=== PATIENT | male | born 1995 | race Caucasian/White ===

== ENCOUNTER 2021-01-10 21:11 | Emergency (ER) | payer BC ==
[~2021-01-10] VITALS: Ht 182.9 cm; Wt 79.8 kg
[2021-01-10 21:18] VITALS: BP 152/80
--- NOTE | 2021-01-10 21:40 | NUR ---
PT PRESENTED TO THE ED W/ CC TESTICAL PAIN W/ PAIN SCALE OF 4 OF 10, PT STATED "PAIN FEELS LIKE HE IS SITTING ON IT", VSS, NO OTHER SIGNS OF ACUTE DISTRESS NOTED PMH: ANXIETY, SCRATCHED CORNEA NKA
--- NOTE | 2021-01-10 21:48 | NUR ---
US AT BEDSIDE
[2021-01-11 00:38] VITALS: BP 152/80
--- NOTE | 2021-01-11 00:39 | NUR ---
Patient discharged with v/s stable. Written and verbal after care instructions given and explained. Patient verbalized understanding. Ambulatory with steady gait. All questions addressed prior to discharge. Advised to follow up with PMD.
== END 2021-01-11 00:39 | disposition home or self-care (01) ==
LOC: MED 21:11
DX: N50.812 Left testicular pain (principal); F41.9 Anxiety disorder, unspecified; F17.210 Nicotine dependence, cigarettes, uncomplicated
CPT/HCPCS: 76870; 81002; 99284; Q0092